=== PATIENT | male | born 1980 | race Caucasian/White ===

== ENCOUNTER 2017-09-20 13:18 | Emergency (ER) | payer OTHER ==
[2017-09-20 13:23] VITALS: BP 128/83
--- NOTE | 2017-09-20 14:32 | ER Document Report ---
HPI - HPI Patient complains to provider of: Hand injury Onset: This afternoon Onset/Duration: Sudden Quality of pain: Achy Pain Level: 4 Context: Patient states that he tripped and fell over his dog landed on outstretched hand. Patient complains of right hand pain and swelling. Patient is right- hand dominant. Associated Symptoms: Other - Right hand injury Exacerbated by: Movement Relieved by: Denies Similar symptoms previously: No Recently seen / treated by doctor: No - ROS ROS below otherwise negative: Yes Systems Reviewed and Negative: Yes All other systems reviewed and negative - NEURO Neurology: DENIES: Weakness - GASTROINTESTINAL Gastrointestinal: DENIES: Nausea - MUSCULOSKELETAL Musculoskeletal: REPORTS: Extremity pain - R hand, Swelling - DERM Skin Color: Normal Past Medical History - General Information source: Patient - Social History Smoking Status: Current Every Day Smoker Chew tobacco use (# tins/day): No Frequency of alcohol use: Social Drug Abuse: Marijuana Occupation: [employer] Lives with: Family Family History: Reviewed & Not Pertinent Patient has suicidal ideation: No Patient has homicidal ideation: No Renal/ Medical History: Denies: Hx Peritoneal Dialysis Psychiatric Medical History: Reports: Hx Depression - PTSD, Hx Post Traumatic Stress Disorder Past Surgical History: Reports: Hx Appendectomy, Hx Testicular Surgery, Hx Tonsillectomy Vertical Provider Document - CONSTITUTIONAL Agree With Documented VS: Yes Exam Limitations: No Limitations General Appearance: WD/WN, No Apparent Distress - INFECTION CONTROL TRAVEL OUTSIDE OF THE [place] IN LAST 30 DAYS: No - HEENT HEENT: Atraumatic, Normocephalic - NECK Neck: Normal Inspection - RESPIRATORY Respiratory: Breath Sounds Normal, No Respiratory Distress - CARDIOVASCULAR Cardiovascular: Regular Rate, Regular Rhythm Pulses: Normal: Radial - MUSCULOSKELETAL/EXTREMETIES Musculoskeletal/Extremeties: MAEW, Tender - Right hand tenderness of her right fourth and fifth metacarpals, Edema. negative: Eccymosis - NEURO Level of Consciousness: Awake, Alert, Appropriate Motor/Sensory: No Motor Deficit - DERM Integumentary: Warm, Dry, No Rash Course - Vital Signs Vital signs: Temp Pulse Resp BP Pulse Ox 98.6 F 90 14 128/83 H 97 09/20/17 13:22 09/20/17 13:22 09/20/17 13:22 09/20/17 13:22 09/20/17 13:22 - Diagnostic Test Radiology reviewed: Pending, Image reviewed Procedures - Immobilization Right Hand Pre-Proc Neuro Vasc Exam: Normal Immobilizer type: Ulnar Performed by: PCT Post-Proc Neuro Vasc Exam: Normal Alignment checked and good: Yes Discharge - Discharge Clinical Impression: Fall Qualifiers: Encounter type: initial encounter Qualified Code(s): W19.XXXA - Unspecified fall, initial encounter Hand fracture, right Qualifiers: Encounter type: initial encounter Fracture type: closed Qualified Code(s): S62.91XA - Unspecified fracture of right wrist and hand, initial encounter for closed fracture Condition: Stable Disposition: HOME, SELF-CARE Instructions: Fracture ([facility]), Ice & Elevation ([facility]), Oral Narcotic Medication ( [facility]), Splint Precautions ([facility]) Additional Instructions: Return immediately for any new or worsening symptoms Followup with Dr. Finley (hand surgeon) for further evaluation, call tomorrow for an appointment. Prescriptions: Hydrocodone/Acetaminophen [[place] 5-325 Tablet] 1 each PO Q4 PRN #15 tablet PRN Reason: Forms: Smoking Cessation Education, Return to Work Referrals: MARU FINLEY DO [ACTIVE STAFF] - Follow up tomorrow
[2017-09-20] MEDS ORDERED: ACETAMINOPHEN 325 MG TABLET PO ONE (15:02)
[2017-09-20] MEDS ORDERED: ACETAMINOPHEN 325 MG TABLET ONE (15:08)
--- NOTE | 2017-09-20 15:44 | RADIOLOGY REPORT (SQ) ---
EXAM DESCRIPTION: HAND RIGHT 3 VIEWS COMPLETED DATE/TIME: 09/20/2017 2:21 pm REASON FOR STUDY: fall, r hand injury fall injury pain COMPARISON: None. EXAM PARAMETERS: NUMBER OF VIEWS: Three views. TECHNIQUE: AP, lateral and oblique radiographic images acquired of the right hand. LIMITATIONS: None. FINDINGS: MINERALIZATION: Normal. BONES: Acute spiral fracture right 4th metacarpal midshaft, minimal over riding of fracture fragments without significant dorsal or palmar angulation. JOINTS: No effusions. SOFT TISSUES: Diffuse dorsal right hand soft tissue swelling. No foreign body. OTHER: No other significant finding. IMPRESSION: Acute spiral fracture right 4th metacarpal midshaft. TECHNICAL DOCUMENTATION: JOB ID: [id number] [employer]- All Rights Reserved Reading location - IP/workstation name: [email or web address]
== END 2017-09-20 15:31 | disposition home or self-care (01) ==
LOC: ER 13:18
PROC: 2W3CX1Z Immobilization of Right Lower Arm using Splint (ICD-10-PCS; principal; 2017-09-20)
DX: S62.91XA Unspecified fracture of right hand, initial encounter for closed fracture (principal); M79.641 Pain in right hand; M79.89 Other specified soft tissue disorders; W01.0XXA Fall on same level from slipping, tripping and stumbling without subsequent striking against object, initial encounter; F17.200 Nicotine dependence, unspecified, uncomplicated
CPT/HCPCS: 99283

== ENCOUNTER 2018-07-29 14:47 | Emergency (ER) | payer OTHER ==
[2018-07-29] MEDS ORDERED: EPINEPHRINE INJ/PF 1 MG/1 ML AMPULE IM ONE ×2 (15:09→16:56)
[2018-07-29] MEDS ORDERED: FAMOTIDINE INJ/PF 20 MG/2 ML SDV IV ONE (15:09)
[2018-07-29] MEDS ORDERED: METHYLPREDNISOLONE INJ 125 MG/2 ML SDV IV ONE (15:09)
--- NOTE | 2018-07-29 15:36 | ER Document Report ---
ED General - General Chief Complaint: Allergic Reaction Stated Complaint: POSSIBLE ALLERGIC REACTION Time Seen by Provider: 07/29/18 15:05 Primary Care Provider: ANAT,DADA [Primary Care Provider] - Follow up tomorrow Mode of Arrival: Ambulatory Information source: Patient Notes: 38-year-old male with PTSD presents with complaint of a pruritic rash, lip swelling and the sensation of difficulty swallowing. Patient states rash started 3 days prior to arrival. It is located on his inner thigh. Lip swelling started yesterday. Patient denies any cough, wheezing, vomiting. He did take 50 mg of Benadryl prior to arrival. Patient reports that he started lisinopril approximately 3 weeks ago. He states he has not taken it for the last 4 days. I did report to the patient that this is a common side effect for lisinopril. Patient denies any other new medication, exposures, known allergies TRAVEL OUTSIDE OF THE [place] IN LAST 30 DAYS: No - HPI Onset: Other Onset/Duration: Gradual, Persistent Quality of pain: Other - Itching Severity: None Pain Level: Denies Associated symptoms: denies: Chest pain, Fever, Headache, Nausea, Vomiting, Shortness of breath Exacerbated by: Denies Relieved by: Denies Similar symptoms previously: No Recently seen / treated by doctor: No - Related Data Allergies/Adverse Reactions: Sulfa (Sulfonamide Antibiotics) Allergy (Verified 07/29/18 14:48) wasps Allergy (Uncoded 07/29/18 14:48) Past Medical History - General Information source: Patient - Social History Smoking Status: Current Every Day Smoker Cigarette use (# per day): Yes - 10 Smoking Education Provided: Yes - Smoking cessation counseling was provided for 4 minutes at the bedside Frequency of alcohol use: Occasional Drug Abuse: Bath salts Lives with: Family Family History: Reviewed & Not Pertinent Patient has suicidal ideation: No Patient has homicidal ideation: No Renal/ Medical History: Denies: Hx Peritoneal Dialysis Psychiatric Medical History: Reports: Hx Depression - PTSD, Hx Post Traumatic Stress Disorder Past Surgical History: Reports: Hx Appendectomy, Hx Testicular Surgery, Hx Tonsillectomy Review of Systems - Review of Systems Notes: REVIEW OF SYSTEMS: CONSTITUTIONAL : Denies fever, chills, or sweats. Denies recent illness. Denies weight loss, recent hospitalizations. EENT: Denies visual changes, eye pain. Denies sore throat, oral lesions, + difficulty swallowing. CARDIOVASCULAR: Denies chest pain. Denies palpitations. Denies lower extremity edema. RESPIRATORY: Denies cough. Denies shortness of breath, wheezing. GASTROINTESTINAL: Denies abdominal pain or distention. Denies nausea, vomiting, or diarrhea. Denies blood in vomitus, stools, or per rectum. Denies black, tarry stools. Denies constipation. GENITOURINARY: Denies difficulty urinating, painful urination, frequency, blood in urine, testicular pain or penile discharge. MUSCULOSKELETAL: Denies back or neck pain or stiffness. Denies joint pain or swelling. SKIN: + rash, denies lesions or sores. HEMATOLOGIC : Denies easy bruising or bleeding. LYMPHATIC: Denies swollen glands. NEUROLOGICAL: Denies confusion or altered mental status. Denies loss of consciousness. Denies dizziness or lightheadedness. Denies headache. Denies weakness or paralysis. Denies problems difficulty with ambulation, slurred speech. Denies sensory loss, numbness, or tingling. Denies seizures. PSYCHIATRIC: Denies anxiety or stress. Denies depression, suicidal ideation, or Physical Exam - Vital signs Vitals: Temp Pulse Resp BP Pulse Ox 98.2 F 100 16 129/91 H 98 07/29/18 14:50 07/29/18 14:50 07/29/18 14:50 07/29/18 14:50 07/29/18 14:50 - Notes Notes: PHYSICAL EXAMINATION: GENERAL: Well-appearing, well-nourished and in no acute distress. HEAD: Atraumatic, normocephalic. EYES: Pupils equal round and reactive to light, extraocular movements intact, sclera anicteric, conjunctiva are normal. ENT: Nares patent, oropharynx clear without exudates. Moist mucous membranes. Mild upper lip swelling. No tongue swelling, no sublingual edema, no stridor, airway patent. Patient handling secretions NECK: Normal range of motion, supple without lymphadenopathy LUNGS: Breath sounds clear to auscultation bilaterally and equal. No wheezes rales or rhonchi. HEART: Regular rate and rhythm without murmurs ABDOMEN: Soft, nontender, nondistended abdomen. No guarding, no rebound. No masses appreciated. Musculoskeletal: Normal range of motion, no pitting or edema. No cyanosis. NEUROLOGICAL: Cranial nerves grossly intact. Normal speech, normal gait. Normal sensory, motor exams PSYCH: Normal mood, normal affect. SKIN: Multiple areas of urticaria on the lower extremities. Course - Re-evaluation Re-evalutation: Temp Pulse Resp BP Pulse Ox 98.2 F 100 12 129/91 H 96 07/29/18 14:50 07/29/18 14:50 07/29/18 14:57 07/29/18 14:50 07/29/18 14:57 07/29/18 15:36 Patient presents with concern for allergic reaction. He does have mild lip swelling and an urticarial rash rash is located on his inner thighs bilaterally and is described as pruritic. Patient did give himself 50 mg of Benadryl prior to arrival. Here he did get Solu-Medrol, Pepcid Patient's lip swelling could be associated with his lisinopril use. There is no tongue involvement, sublingual edema, stridor, wheezing. 07/29/18 19:24 On reevaluation patient stated that his lip still felt swollen. He did receive 2 doses of 0.3 mg of IM epinephrine and 12.5 mg of Benadryl. On third reevaluation patient's rash has completely resolved, lip swelling has resolved and patient states he is feeling better. Patient was advised to stop taking his 2 new medications of lisinopril and trazodone until he talks to his primary care physician. Patient discharged home with prednisone, Pepcid, and EpiPen and instructions to take Benadryl 25 mg every 8 hours as needed for itching. Patient presents with symptoms consistent with an allergic reaction without anaphylaxis. Only cutaneous involvement with multiple areas of hives. Vitals otherwise within normal limits at time of arrival. No respiratory, GI, cardiovascular, or oral pharyngeal symptoms. A trial of epinephrine for symptom resolution was offered to the patient. This did resolve the majority of the patient's hives. Will recommend ongoing antihistamine therapy as an outpatient. At this time will discharge with return precautions and follow-up recommendations. Verbal discharge instructions given a the bedside and opportunity for questions given. Medication warnings reviewed. Patient is in agreement with this plan and has verbalized understanding of return precautions and the need for primary care follow-up in the next 24-72 hours. 07/29/18 20:49 Patient was evaluated and treated as appropriate for the patient's presenting symptoms and complaint, with consideration of any critical or life threatening conditions that may be associated with their obtained history and exam as noted above. All results were discussed with patient. Patient provided the opportunity to ask questions, and express concerns. Patient was educated on treatments based on their presumed diagnosis as noted above. At this time we will discharge the patient with return precautions and follow-up recommendations. Verbal discharge instructions given a the bedside. Medication warnings reviewed. Patient is in agreement with this plan and has verbalized understanding of return precautions. After careful consideration I feel that that patient can be safely discharged from the emergency department, they were advised to followup with a primary care physician in 2-3 days. Dictation on this chart was performed using voice recognition software and may result in unintended grammatical, spelling, syntax or errors. - Vital Signs Vital signs: Temp Pulse Resp BP Pulse Ox 98.4 F 100 15 142/92 H 95 07/29/18 19:10 07/29/18 14:50 07/29/18 19:01 07/29/18 19:01 07/29/18 19:01 Discharge - Discharge Clinical Impression: Allergic reaction Qualifiers: Encounter type: initial encounter Qualified Code(s): T78.40XA - Allergy, unspecified, initial encounter Condition: Good Disposition: HOME, SELF-CARE Instructions: Acute Allergic Reaction ([facility]) Prescriptions: Epinephrine [Epipen] 0.3 mg IJ ASDIR PRN #1 auto.injct PRN Reason: Famotidine [Pepcid 40 mg Tablet] 40 mg PO DAILY #5 tablet Prednisone [Deltasone 20 mg Tablet] 3 tab PO DAILY 5 Days #15 tablet Forms: Elevated Blood Pressure, Return to Work [facility]errals: [facility] [[facility] - Follow up tomorrow
[2018-07-29] MEDS ORDERED: DIPHENHYDRAMINE HCL 50 MG/ML VIAL IV ONE (16:57)
[2018-07-29 19:19] VITALS: BP 142/92
== END 2018-07-29 19:44 | disposition home or self-care (01) ==
LOC: ER 14:47
DX: T78.40XA Allergy, unspecified, initial encounter (principal); R21 Rash and other nonspecific skin eruption; R22.0 Localized swelling, mass and lump, head; Z79.899 Other long term (current) drug therapy; F17.210 Nicotine dependence, cigarettes, uncomplicated
CPT/HCPCS: 99406; 99283; 96372; 96374; 96375; J0171; J2930; S0028

== ENCOUNTER 2018-07-31 06:33 | Emergency (ER) | payer OTHER ==
[2018-07-31] MEDS ORDERED: FAMOTIDINE INJ/PF 20 MG/2 ML SDV IV ONE (06:51)
[2018-07-31] MEDS ORDERED: DIPHENHYDRAMINE HCL 50 MG/ML VIAL IV ONE (06:51)
[2018-07-31 09:30] VITALS: BP 133/107
[2018-07-31] MEDS ORDERED: PREDNISONE 20 MG TABLET PO ONE (09:47)
--- NOTE | 2018-07-31 09:50 | ER Document Report ---
ED General - General Chief Complaint: Allergic Reaction Stated Complaint: ALLERGIC REACTION Time Seen by Provider: 07/31/18 06:47 Primary Care Provider: EFFIE WADSWORTH [NO LOCAL MD] - Follow up as needed TRAVEL OUTSIDE OF THE [place]. IN LAST 30 DAYS: No - HPI Patient complains to provider of: Possible allergic reaction Notes: Patient was seen on Monday for possible allergic reaction with hives shortness of breath was received epinephrine shots with improvement discharged home with Pepcid prednisone possible reaction to his trazodone and prazosin. Patient states he stopped the medication however today continues with some shortness of breath and itching. Patient states that his face is swollen his ears swollen than that he says hives. Upon my evaluation patient speaking complete sentences no signs of respiratory distress. Patient states he did not get his prescriptions filled but however been taking Benadryl at home along with 20 mg of prednisone. Patient denies any fever chills nausea vomiting diarrhea - Related Data Allergies/Adverse Reactions: Sulfa (Sulfonamide Antibiotics) Allergy (Verified 07/31/18 06:34) wasps Allergy (Uncoded 07/31/18 06:34) Past Medical History - Social History Smoking Status: Former Smoker Chew tobacco use (# tins/day): No Frequency of alcohol use: None Drug Abuse: None Family History: Reviewed & Not Pertinent Patient has suicidal ideation: No Patient has homicidal ideation: No Renal/ Medical History: Denies: Hx Peritoneal Dialysis Psychiatric Medical History: Reports: Hx Depression - PTSD, Hx Post Traumatic Stress Disorder Past Surgical History: Reports: Hx Appendectomy, Hx Testicular Surgery, Hx Tonsillectomy Review of Systems - Review of Systems Constitutional: No symptoms reported EENT: No symptoms reported Cardiovascular: No symptoms reported Respiratory: No symptoms reported Gastrointestinal: No symptoms reported Genitourinary: No symptoms reported Male Genitourinary: No symptoms reported Musculoskeletal: No symptoms reported Skin: Other - Allergic reaction Hematologic/Lymphatic: No symptoms reported Neurological/Psychological: No symptoms reported -: Yes All other systems reviewed and negative Physical Exam - Vital signs Vitals: Temp Pulse Resp BP Pulse Ox 98.4 F 95 28 H 135/95 H 97 07/31/18 06:37 07/31/18 06:37 07/31/18 06:37 07/31/18 06:37 07/31/18 06:37 Interpretation: Normal - General General appearance: Appears well, Alert - HEENT Head: Normocephalic, Atraumatic Eyes: Normal Conjunctiva: Normal Cornea: Normal Pupils: PERRL Sinus: Normal Nasal: Normal Mouth/Lips: Normal Pharynx: Normal Neck: Normal - Respiratory Respiratory status: No respiratory distress Chest status: Nontender Breath sounds: Normal Chest palpation: Normal - Cardiovascular Rhythm: Regular Heart sounds: Normal auscultation Murmur: No - Abdominal Inspection: Normal Distension: No distension Bowel sounds: Normal Tenderness: Nontender Organomegaly: No organomegaly - Back Back: Normal, Nontender - Extremities General upper extremity: Normal inspection, Nontender, Normal color, Normal ROM, Normal temperature General lower extremity: Normal inspection, Nontender, Normal color, Normal ROM, Normal temperature, Normal weight bearing. No: Ruth's sign - Neurological Neuro grossly intact: Yes Cognition: Normal Orientation: AAOx4 Eagle Coma Scale Eye Opening: Spontaneous Eagle Coma Scale Verbal: Oriented Eagle Coma Scale Motor: Obeys Commands Chris Coma Scale Total: 15 Speech: Normal Motor strength normal: LUE, RUE, LLE, RLE Sensory: Normal - Psychological Associated symptoms: Normal affect, Normal mood - Skin Skin Temperature: Warm Skin Moisture: Dry Skin Color: Normal Course - Re-evaluation Re-evalutation: 07/31/18 13:43 Patient coming for possible allergic reaction. Patient complaining of itching and swelling. This is witnessed on the patient's person. Patient was given Benadryl and Pepcid. Patient was observed states that his breathing was better. She did seem to be slightly anxious concerned about his allergic reaction. Explained to the patient at this time is no need for epinephrine I explained to the patient that part of his reaction could be related to underlying anxiety that this could be stress-induced urticaria I did suggest that we continue with the prednisone as PC prescribed 60 mg for the next few days I will switch the patient from Benadryl to Vistaril however this plan to the patient that he continues on the need to follow-up with his [facility] provider for readjustment of his medications prazosin and trazodone for possible underlying anxiety. - Vital Signs Vital signs: Temp Pulse Resp BP Pulse Ox 98.4 F 95 22 H 133/107 H 97 07/31/18 06:37 07/31/18 06:37 07/31/18 09:02 07/31/18 09:02 07/31/18 09:02 Discharge - Discharge Clinical Impression: allergic reaction v stress-induced hives Condition: Good Disposition: HOME, SELF-CARE Instructions: Acute Allergic Reaction ([facility]), Acute Urticaria ([facility]) Additional Instructions: Your vital signs and physical examination today did not show any critical pathology. I highly recommend she follow-up with [facility] provider. Please call them let me know you came in over the weekend for the possible allergic reaction to your medications for your PTSD. I believe some of your symptoms today are more likely caused by anxiety or stress I would highly recommend to continue the allergic reaction therapy with prednisone Vistaril as prescribed (no more Benadryl) and Pepcid. Also I recommend following up with your [facility] provider. Return to the ER symptoms worsen. Prescriptions: Hydroxyzine Pamoate [Vistaril 50 mg Capsule] 50 mg PO Q6 #30 capsule Forms: Return to Work Referrals: LOCALMD,NO [NO LOCAL MD] - Follow up as needed
== END 2018-07-31 09:48 | disposition home or self-care (01) ==
LOC: ER 06:33
DX: L29.9 Pruritus, unspecified (principal); Z88.2 Allergy status to sulfonamides; Z91.038 Other insect allergy status; Z87.891 Personal history of nicotine dependence
CPT/HCPCS: 99283; J1200; J7512; S0028

== ENCOUNTER 2019-04-25 13:31 | Emergency (ER) | payer OTHER ==
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
[2019-04-25 14:25] LABS: ABSOLUTE BASOPHILS # (AUTO) 0.1 10^3/uL (0.0-0.2); ABSOLUTE EOSINOPHILS # (AUTO) 0.3 10^3/uL (0.0-0.6); ABSOLUTE LYMPHOCYTES (AUTO) 2.4 10^3/uL (0.5-4.7); ABSOLUTE MONOCYTES (AUTO) 0.7 10^3/uL (0.1-1.4); ABSOLUTE NEUT (AUTO) 6.7 10^3/uL (1.7-8.2); EOSINOPHILS % (AUTO) 2.6 % (0-6); HEMATOCRIT 42.7 % (37.9-51.0); HEMOGLOBIN 14.9 g/dL (13.5-17.0); LYMPHOCYTES % (AUTO) 23.4 % (13-45); MEAN CORPUSCULAR HEMOGLOBIN 32.5 pg (27.0-33.4); MEAN CORPUSCULAR VOLUME 93 fl (80-97); MONOCYTES % (AUTO) 6.8 % (3-13); PLATELET COUNT 229 10^3/uL (150-450); RED CELL DISTRIBUTION WIDTH 13.2 % (11.5-14.0); SEGMENTED NEUTROPHILS % (AUTO) 66.2 % (42-78); TOTAL CELLS COUNTED % (AUTO) 100 %; WHITE BLOOD COUNT 10.2 10^3/uL (4.0-10.5)
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
[2019-04-25 14:47] LABS: ALBUMIN 4.4 g/dL (3.5-5.0); ALKALINE PHOSPHATASE 60 U/L (38-126); ANION GAP 7 (5-19); ASPARTATE AMINO TRANSFERASE 46 U/L (17-59); BILIRUBIN,TOTAL 0.5 mg/dL (0.2-1.3); BLOOD UREA NITROGEN 10 mg/dL (7-20); CALCIUM 9.6 mg/dL (8.4-10.2); CARBON DIOXIDE 27 mmol/L (22-30); CHLORIDE 106 mmol/L (98-107); GLUCOSE 100 mg/dL (75-110); POTASSIUM 4.3 mmol/L (3.6-5.0); TOTAL PROTEIN 7.2 g/dL (6.3-8.2)
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
[2019-04-25 15:16] VITALS: BP 153/99
--- NOTE | 2019-04-25 15:55 | EKG REPORT ---
SEVERITY:- OTHERWISE NORMAL ECG - SINUS RHYTHM BORDERLINE LEFT AXIS DEVIATION : Confirmed by: Kimber Neil MD 25-Apr-2019 15:54:34
== END 2019-04-25 16:22 | disposition home or self-care (01) ==
LOC: ER 13:31
DX: R13.10 Dysphagia, unspecified (principal); R51 Headache; F41.9 Anxiety disorder, unspecified; I10 Essential (primary) hypertension; V87.7XXA Person injured in collision between other specified motor vehicles (traffic), initial encounter; Z88.1 Allergy status to other antibiotic agents; Z88.8 Allergy status to other drugs, medicaments and biological substances; F17.200 Nicotine dependence, unspecified, uncomplicated
CPT/HCPCS: 36415; 70450; 80053; 84443; 85025; 93005; 93010; 99284